=== PATIENT | female | born 1995 | race Caucasian/White ===

== ENCOUNTER 2021-08-01 12:38 | Emergency (ER) | payer MEDICAID, SELFPAY ==
--- NOTE | 2021-08-01 12:53 | ECG_ITS ---
Test Reason : CHEST PAIN Blood Pressure : / mmHG Vent. Rate : 082 BPM Atrial Rate : 082 BPM P-R Int : 140 ms QRS Dur : 070 ms QT Int : 362 ms P-R-T Axes : 074 077 056 degrees QTc Int : 422 ms Normal sinus rhythm Normal ECG When compared with ECG of 08-MAY-2016 15:15, No significant change was found Referred By: Generic ED Physician Electronically Signed By:TARIK MEJIA
[2021-08-01 14:01] VITALS: BP 142/100; PULSE 102; RESP 20; TEMP 36.6; O2SAT 100; BMI 19.8
[2021-08-01 14:21] LABS: Hematocrit 46.2 % (37.0-47.0); Hemoglobin 15.4 g/dl (12.0-16.0); Mean Corpuscular HGB Conc 33.3 g/dl (31.0-35.0); Platelet Count 300 X10*3/uL (160-400); Red Blood Count 4.97 X10*6/uL (4.20-5.50); Red Cell Distribution Width 11.8 % (11.0-16.0); White Blood Count 8.4 X10*3/uL (4.8-10.8)
[2021-08-01 14:35] LABS: COVID-19 Test Negative (Negative)
[2021-08-01 14:47] LABS: Anion Gap 11 (12-20); Blood Urea Nitrogen 15 mg/dL (9-16); Carbon Dioxide 25 mmol/L (22-29); Chloride 106 mmol/L (96-108); Creatinine Clr Calc Pharmacy 79.1; Estimated Glomerular Filt Rate > 60; Glucose Random 72 mg/dL (60-115); Potassium 4.3 mmol/L (3.3-5.1); Sodium 138 mmol/L (135-145)
== END 2021-08-01 17:57 | disposition left against medical advice (07) ==
PROVIDERS: Emergency Provider Emergency Medicine
DX: R07.9 Chest pain, unspecified (principal); Z20.822 Contact with and (suspected) exposure to COVID-19
CPT/HCPCS: 80048; 85027; 87635; 93005; 99283

== ENCOUNTER 2021-12-16 05:38 | Emergency (ER) | payer MEDICAID, SELFPAY ==
[2021-12-16 05:49] VITALS: BP 137/75; PULSE 87; RESP 14; TEMP 37.2; O2SAT 100; BMI 24.5
--- NOTE | 2021-12-16 06:07 | ED.ANXIETY ---
HPI - Anxiety General Chief Complaint: Anxiety Stated Complaint: Dizziness Time Seen by Provider: 12/16/21 06:07 Source: patient Mode of arrival: ambulatory Limitations: no limitations History of Present Illness HPI narrative: Patient with history of anxiety missed her Wellbutrin for 4 days started yesterday today at work patient feeling dizzy with multiple non specific complaints denies any anxiety or stress. But when patient came patient was not in any distress moving around pretty normal but complaining of multiple complaints Related Data Allergies Allergy/AdvReac Type Severity Reaction Status Date / Time No Known Allergies Allergy Unverified 03/18/20 19:10 [No Known Allergies*] Review of Systems Review of Systems: Yes all other systems are reviewed and are negative [facility] Past Medical History Medical History Depression Social History Social History Advance Directives: No Physical Exam Vital Signs: Vital Signs: Last Vital Signs Temp 99.0 F 12/16/21 05:49 Pulse 71 12/16/21 06:18 Resp 14 12/16/21 05:49 BP 121/74 12/16/21 06:18 Pulse Ox 100 12/16/21 05:49 O2 Del Method 12/16/21 05:49 BMI result Body Mass Index 24.5 Appearance: Alert. Oriented X3. No acute distress. Eyes: PERRLA, No Nystagmus ENT: Pharynx normal. Oral Mucosa moist Neck: Normal inspection. Neck supple. CVS: Normal heart rate and rhythm. Pulses normal. Respiratory: No respiratory distress. Equal air entry bilateral, no wheezing/rales/rhonchi Abdomen: Soft and nontender. Bowel sounds are present, no mass palpable, no CVA tenderness Skin: Skin warm and dry. Normal skin color. Normal skin turgor. Extremities: No lower extremity edema. No calf tenderness Neuro: Oriented X 3. No motor deficit. No sensory deficit.No cerebellar signs , cranial nerves II-XII intact MDM - Anxiety MDM Narrative Medical decision making narrative: Patient with multiple complaints eems like anxiety orthostatics normal urine negative, will discharge patient home Lab Data Attestation: I reviewed the patient's lab results. Labs: Lab Results 12/16/21 12/16/21 Range/Units 06:37 06:37 Urine Color YELLOW Urine Appearance CLEAR Urine pH 6.0 (5.0-8.0) Ur Specific Cecil 1.015 (1.005-1.025) Urine Protein NEG (NEG-TRACE) MG/DL Urine Glucose (UA) NEG (NEG) MG/DL Urine Ketones NEG (NEG) MG/DL Urine Blood NEG (NEG) Urine Nitrite NEG (NEG) Ur Leukocyte Esterase NEG (NEG) Urine Test NEGATIVE (NEGATIVE) Discharge Plan Discharge Clinical Impression: Acute anxiety Patient Disposition: Home, Self-Care Instructions: Anxiety (ED) Additional Instructions: Takie your medication and follow with PCP Stand Alone Forms: Work/School Release
[2021-12-16 06:15] VITALS: BP 111/70; PULSE 64
[2021-12-16 06:16] VITALS: BP 114/68; PULSE 72
[2021-12-16 06:18] VITALS: BP 121/74; PULSE 71
[2021-12-16 06:43] LABS: Appearance Urine CLEAR; Color Urine YELLOW; Glucose Urine UA NEG (NEG); Leukocyte Esterase Urine NEG (NEG); Nitrite Urine NEG (NEG); Specific Gravity - Urine 1.015 (1.005-1.025); Urine Blood NEG (NEG); Urine Ketones NEG (NEG); Urine Protein NEG (NEG-TRACE)
[2021-12-16 06:46] LABS: UPreg QC Valid YES; Urine Pregnancy NEGATIVE (NEGATIVE)
== END 2021-12-16 07:09 | disposition home or self-care (01) ==
PROVIDERS: Emergency Provider Internal Medicine; PCP Physician Assistant Medical
DX: F41.9 Anxiety disorder, unspecified (principal)
CPT/HCPCS: 81003; 81025; 99283

== ENCOUNTER 2022-08-12 20:25 | Emergency (ER) | payer MEDICAID, SELFPAY ==
[2022-08-12 21:00] VITALS: BP 116/63; PULSE 95; RESP 16; TEMP 38; O2SAT 98; BMI 19.3
[2022-08-12] MEDS: Acetaminophen 325 MG TABLET 650 MG PO (21:05)
[2022-08-12 22:09] LABS: IDNOW Serial# 6674DD1D; Strep A Nucleic Acid Negative (Negative)
--- NOTE | 2022-08-13 01:18 | ED_ITS ---
HPI - General Adult General Chief complaint: General Medical Stated complaint: Sore Throat ? Tonsillitis Time Seen by Provider: 08/13/22 00:34 Source: patient Mode of arrival: ambulatory Limitations: no limitations History of Present Illness HPI narrative: 26-year-old female presents with sore throat. Symptoms started 2 days ago. Worse with swelling. Better with rest. Able tolerate liquids. Subjective fevers but no chills. No sick contacts. No respiratory complaints such as cough, runny nose, congestion, chest pain who mucus production, rash. No prior treatment. Related Data Previous Rx's Medication Instructions Recorded amoxicillin 875 mg tablet 875 mg PO Q12H #20 tabs 08/13/22 Allergies Allergy/AdvReac Type Severity Reaction Status Date / Time No Known Allergies Allergy Unverified 03/18/20 19:10 [No Known Allergies*] Review of Systems Review of Systems: CONSTITUTIONAL: Denies weight loss, fever and chills. HEENT: Denies changes in vision and hearing. RESPIRATORY: Denies SOB and cough. CV: Denies palpitations no CP. GI: Denies abdominal pain, nausea, vomiting and diarrhea. : Denies dysuria and urinary frequency. MSK: Denies myalgia and joint pain. SKIN: Denies rash and pruritus. NEUROLOGICAL: Denies headache and syncope. PSYCHIATRIC: Denies recent changes in mood. Denies anxiety and depression. All other ROS are negative unless in HPI PMFSH Past Medical History Medical History Depression Social History Social History Advance Directives: No Advance Directives Information Provided: No Physical Exam ED Vital Signs: Vital Signs - 24 hr 08/12/22 21:00 Temperature 100.4 F Pulse Rate 95 Respiratory Rate 16 Blood Pressure 116/63 Pulse Oximetry 98 Oxygen Delivery Method Room Air BMI result Body Mass Index 19.3 GEN: Well developed, no acute distress, alert, oriented HEENT: Normocephalic, atraumatic, normal external ears, nose appears normal, Bilateral tonsillar enlargement, erythematous changes, no exudates, Eyes: Normal to appearance Neck: Supple, + lymphadenopathy Respiratory: Talks in complete sentences, no respiratory distress, clear to auscultation bilaterally Cardiovascular: Regular rate and rhythm, no murmurs rubs or gallops Abdomen: Soft, nontender, nondistended, no guarding, no rebound Back: No CVA tenderness Extremities: No clubbing cyanosis or edema Neurologic: No focal neurologic deficits, cranial nerves 2-12 intact, strength is 5/5 bilaterally, gait normal Skin: No rash Course Course Course Narrative: 26-year-old female with sore throat. Examination revealed tonsillar enlargement with erythematous changes, no exudate and cervical lymphadenopathy. The rest of her exam is benign. Most likely is strep pharyngitis. Rapid strep was negative, however, based on criteria, patient will be appropriate to treat for strep pharyngitis pending throat cultures. Patient can take Tylenol and ibuprofen as needed for pain and discomfort. Otherwise, patient will start amoxicillin. Medications Administered Discontinued Medications Generic Name Dose Route Start Last Admin Trade Name Freq PRN Reason Stop Dose Admin Acetaminophen 650 mg 08/12/22 21:04 08/12/22 21:05 Acetaminophen 325 Mg Tablet PO 08/12/22 21:05 650 mg ONCE ONE Administration Medical Decision Making Medical Decision Making [facility] Narrative: 26-year-old female presents with sore throat. Examination is most consistent with strep pharyngitis. There is no evidence of peritonsillar abscess or retropharyngeal abscess. She has no upper respiratory complaints to suggest COVID, influenza, parainfluenza, rhino virus rather typical viral illnesses Differential Diagnosis Differential Diagnoses: The differential diagnosis associated with the presentation includes ( viral pharyngitis, strep pharyngitis, ROPE RIDER, retropharyngeal abscess) acute pharyngitis Lab Data [facility] Lab Attestation statement: I reviewed the patient's lab results. Labs: Lab Results 08/12/22 Range/Units 21:38 S. pyogenes GrpA BRANNON Negative (Negative) External Record Review emergency department visit from 12/21 Tests considered The following testing was considered but not selected: soft tissue x-ray Prescription Management I considered prescription management with: Pain Medication and Antibiotic Discharge Plan Discharge Clinical Impression: Acute pharyngitis Patient Disposition: Home, Self-Care Instructions: Pharyngitis (ED) Prescriptions: New amoxicillin 875 mg tablet 875 mg PO Q12H Qty: 20 0RF Referrals: KADI CHOI [Primary Care Provider] - 3 days (if needed)
[2022-08-13] MEDS: Amoxicillin 500 MG CAPSULE PO (01:34)
[2022-08-13] MEDS: Ibuprofen 600 MG TABLET PO (01:34)
[2022-08-13 01:38] VITALS: BP 114/70; PULSE 82; RESP 16; TEMP 36.7; O2SAT 100
== END 2022-08-13 01:47 | disposition home or self-care (01) ==
PROVIDERS: Emergency Provider Emergency Medicine; PCP Physician Assistant Medical
DX: J02.9 Acute pharyngitis, unspecified (principal); Z79.899 Other long term (current) drug therapy
CPT/HCPCS: 36415; 87651; 99284